=== PATIENT | female | born 1985 ===

== ENCOUNTER 2020-12-22 18:20 | Emergency (ER) | payer SELFPAY ==
[2020-12-22 18:28] VITALS: BP 121/64; PULSE 88; RESP 20; TEMP 36.5; O2SAT 98; BMI 23.8
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
== END 2020-12-22 20:08 | disposition home or self-care (01) ==
LOC: HO.ED 19:56
PROVIDERS: Emergency Provider Internal Medicine
DX: S00.93XA Contusion of unspecified part of head, initial encounter (principal); Y04.2XXA Assault by strike against or bumped into by another person, initial encounter; Y93.9 Activity, unspecified; Y92.89 Other specified places as the place of occurrence of the external cause; Y99.9 Unspecified external cause status
CPT/HCPCS: 99283